=== PATIENT | male | born 1985 | race Caucasian/White ===

== ENCOUNTER 2020-02-19 19:48 | Emergency (ER) | payer SELFPAY ==
[2020-02-19] MEDS ORDERED: Doxycycline 100 MG Cap PO ONE (20:44)
--- NOTE | 2020-02-19 20:50 | EDM.PDOC ---
ED HPI GENERAL MEDICAL PROBLEM - General Chief Complaint: Skin Complaint Stated Complaint: RASH ON CHEST/NUMBNESS ON RIGHT SIDE 2 DAYS AGO Time Seen by Provider: 02/19/20 19:55 Source of Information: Reports: Patient, RN Notes Reviewed History Limitations: Reports: No Limitations - History of Present Illness INITIAL COMMENTS - FREE TEXT/NARRATIVE: Patient is a 34-year-old male who presents to the ED for the evaluation of a skin rash, to his abdomen and upper thighs. Patient first noticed this rash last night, mostly on his chest, but notes that after he had a very long mot orcycle ride yesterday in the heat, he noticed some more pain to his anterior medial thighs, and noticed a rash. The rash itself is pustular, involves the hair in each of the pustules. Patient states that the ones on his legs are somewhat painful, due to pants rubbing on them. He did not try any sort of [id number] medications for this like ibuprofen or Tylenol, and has not taken any sort of Benadryl or used any creams topically. Patient states that the areas on his chest are tender, but not as painful. He denies any sort of laundry soap difference, or changes in work clothes, or any other detergent like change. He denies any other sick-like symptoms, fever/chills, cough/shortness of breath, nausea/vomiting/diarrhea. Patient states that he is a pretty heavy drinker, and likes to drink roughly 25 shots of liquor nightly along with 5-6 mixed drinks. He has been doing this pretty consistently nightly for about 6 months, however he got a new girlfriend and his drinking has slowed down a little bit. He states that they did go out partying on Wednesday night, and at the end of the night they took 1 hit of ecstasy, so he notes that he was sweating quite profusely, and wondered if the rash could be due to some sort of sweat gland infection or other. Patient notes when he got home that night, he was sleeping pretty hard, and states that he awoke with drool coming out the r ight side of his face and it felt like the whole right side of his face went numb or was numb, but this resolved in a few minutes after walking around. - Related Data Allergies Allergy/AdvReac Type Severity Reaction Status Date / Time No Known Allergies Allergy Verified 02/19/20 19:59 Home Meds: Home Meds Doxycycline [Vibramycin] 100 mg PO BID #19 tab 02/19/20 [Rx] Past Medical History - Past Health History Medical/Surgical History: Denies Medical/Surgical History Social & Family History - Tobacco Use Smoking Status *Q: Current Every Day Smoker Years of Tobacco use: 3 Packs/Tins Daily: 0.5 - Alcohol Use Alcohol Use History: Yes Number of Drinks Per Day: 10 Total Drinks Per Week Comment: 70 Alcohol Use in Last Twelve Months: Yes Alcohol Use Frequency: Daily - Recreational Drug Use Recreational Drug Use: Yes Drug Use in Last 12 Months: Yes Recreational Drug Type: Reports: Ecstasy (recent use 02/17/2020) Recreational Drug Use Frequency: Rarely Recreational Drug Route: Reports: Oral ED ROS GENERAL - Review of Systems Review Of Systems: Comprehensive ROS is negative, except as noted in HPI. ED EXAM, SKIN/RASH Exam: See Below Exam Limited By: No Limitations General Appearance: Alert, WD/WN, No Apparent Distress Respiratory/Chest: No Respiratory Distress, Lungs Clear, Normal Breath Sounds, No Accessory Muscle Use, Chest Non-Tender Cardiovascular: Normal Peripheral Pulses, Regular Rate, Rhythm, No Murmur GI/Abdominal: Normal Bowel Sounds, Soft, Non-Tender, No Distention, No Mass Extremities: Normal Range of Motion, Normal Capillary Refill Neurological: Alert, Oriented, Normal Cognition, No Motor/Sensory Deficits Psychiatric: Normal Affect, Normal Mood Skin: Warm, Dry, Intact, Normal Color, Rash (Folliculitis type rash to the anterior medial thigh surfaces, this is about 1-1/2 finger lengths down from the groin. Folliculitis type rash on the anterior surface of the chest as well, there are pustules noted with hair coming out of each pustule, and some surrounding erythema to these pustules. All areas are somewhat tender but the areas on the legs are much more painful than the areas on the chest.) Location, Skin: Chest, Lower Extremity, Right, Lower Extremity, Left Characteristics: Papular, Erythematous. No: Urticarial Associated features: Tenderness, Inflammation Course - Vital Signs Last Recorded V/S: Last Vital Signs Temp 98.3 F 02/19/20 20:03 Pulse 85 02/19/20 20:03 Resp 20 02/19/20 20:03 BP 129/85 02/19/20 20:03 Pulse Ox 98 02/19/20 20:03 - Orders/Labs/Meds Labs: Laboratory Tests 02/19/20 02/19/20 Range/Units 20:57 20:57 WBC 9.36 H (4.23-9.07) K/mm3 RBC 4.87 (4.63-6.08) M/mm3 Hgb 14.4 (13.7-17.5) gm/dl Hct 43.3 (40.1-51.0) % MCV 88.9 (79.0-92.2) fl MCH 29.6 (25.7-32.2) pg MCHC 33.3 (32.2-35.5) g/dl RDW Std Deviation 44.8 H (35.1-43.9) fL Plt Count 377 H (163-337) K/mm3 MPV 8.6 L (9.4-12.3) fl Neut % (Auto) 55.5 (34.0-67.9) % Lymph % (Auto) 33.7 (21.8-53.1) % [place] % (Auto) 9.1 (5.3-12.2) % Eos % (Auto) 1.3 (0.8-7.0) Baso % (Auto) 0.3 (0.1-1.2) % Neut # (Auto) 5.20 (1.78-5.38) K/mm3 Lymph # (Auto) 3.15 (1.32-3.57) K/mm3 [place] # (Auto) 0.85 H (0.30-0.82) K/mm3 Eos # (Auto) 0.12 (0.04-0.54) K/mm3 Baso # (Auto) 0.03 (0.01-0.08) K/mm3 Sodium 139 (136-145) mEq/L Potassium 3.8 (3.5-5.1) mEq/L Chloride 102 (98-107) mEq/L Carbon Dioxide 27 (21-32) mEq/L Anion Gap 13.8 (5-15) BUN 15 (7-18) mg/dL Creatinine 1.1 (0.7-1.3) mg/dL Est Cr Clr Drug Dosing 87.00 mL/min Estimated GFR (MDRD) > 60 (>60) mL/min BUN/Creatinine Ratio 13.6 L (14-18) Glucose 100 (74-106) mg/dL Calcium 9.1 (8.5-10.1) mg/dL Total Bilirubin 0.3 (0.2-1.0) mg/dL AST 41 H (15-37) U/L ALT 61 (16-63) U/L Alkaline Phosphatase 67 (46-116) U/L Total Protein 7.7 (6.4-8.2) g/dl Albumin 3.7 (3.4-5.0) g/dl Globulin 4.0 gm/dL Albumin/Globulin Ratio 0.9 L (1-2) Meds: Medications Discontinued Medications Generic Name Dose Route Start Last Admin Trade Name Freq PRN Reason Stop Dose Admin Doxycycline Hyclate 100 mg 02/19/20 20:44 Vibramycin PO 02/19/20 20:45 ONETIME ONE - Re-Assessments/Exams Free Text/Narrative Re-Assessment/Exam: 02/19/20 20:54 Patient presents to the ED for evaluation of his rash, and ultimately basic labs. He is concerned as he is such a heavy drinker and was wondered about his liver function. I did tell him it was more appropriate to follow-up with a regular care provider however will check CBC and CMP for management, and place him on doxycycline for suspected folliculitis, with possible MRSA involvement. 02/19/20 21:29 Laboratory evaluation demonstrates no acute abnormalities, patient be discharged home with general recommendations. Departure - Departure Time of Disposition: 21:29 Disposition: Home, Self-Care 01 Condition: Good Clinical Impression: Folliculitis - Discharge Information *PRESCRIPTION DRUG MONITORING PROGRAM REVIEWED*: No *COPY OF PRESCRIPTION DRUG MONITORING REPORT IN PATIENT KUSUM: No Prescriptions: Doxycycline [Vibramycin] 100 mg PO BID #19 tab Instructions: Folliculitis Referrals: PCP,None [Primary Care Provider] - Forms: ED Department Discharge Additional Instructions: You were evaluated in the ER today regarding a suspected skin infection. It does appear that you have a folliculitis. You were given a antibiotic, doxycycline 100 mg 2 times a day for 10 days; please take as prescribed until the course is done or told otherwise by different provider. Please note that this antibiotic will take at least 48 hours to start working appropriately. You may try to use heat/ice packs to the area to help reduce pain/swelling. You may take 500 mg Tylenol or 600 mg ibuprofen every 6 hours as needed for further pain relief. Do not exceed 4000 mg Tylenol or 3200 mg ibuprofen in a 24-hour time span. You had basic labs done at today's visit as well, these are within normal limits. There is no sign of liver damage, kidney damage, or any sort of worris ome bacterial infection. Please return to the ER at any time if your symptoms change or worsen. Sepsis Event Note (ED) - Evaluation Sepsis Screening Result: No Definite Risk - Focused Exam Vital Signs: Vital Signs Temp Pulse Resp BP Pulse Ox 02/19/20 20:03 98.3 F 85 20 129/85 98
== END 2020-02-19 21:44 | disposition home or self-care (01) ==
LOC: JD.ED 19:48
DX: L73.9 Follicular disorder, unspecified (principal); F17.210 Nicotine dependence, cigarettes, uncomplicated
CPT/HCPCS: 36415; 80053; 85025; 99283; A9270

== ENCOUNTER 2021-11-28 11:56 | Emergency (ER) | payer SELFPAY | END 2021-11-28 14:22 | disposition home or self-care (01) | LOC: JD.ED 11:56 | DX: R00.2 Palpitations (principal); I10 Essential (primary) hypertension; Z79.899 Other long term (current) drug therapy; Z72.0 Tobacco use | CPT/HCPCS: 36415; 80053; 84443; 85025; 93005; 93010; 99283; 99285-25 ==